=== PATIENT | male | born 1975 | race Caucasian/White ===

== ENCOUNTER 2020-09-27 07:55 | Emergency (ER) | payer OTHER, MEDICAID ==
[~2020-09-27] VITALS: Ht 170.2 cm; Wt 81.7 kg
[2020-09-27 08:24] LABS: ABSOLUTE BASOPHILS 0.1 thou/uL (0.0-0.2); ABSOLUTE EOSINOPHILS 0.1 thou/uL (0.0-0.7); ABSOLUTE MONOCYTES 0.6 thou/uL (0.0-1.2); ABSOLUTE NEUTROPHILS 4.7 thou/uL (1.6-8.1); BASOPHILS 0.9 %; HEMATOCRIT 46.3 % (42.0-52.0); HEMOGLOBIN 15.6 gm/dL (14.0-18.0); LYMPHOCYTES 35.6 %; MCH 28.4 pg (26.0-34.0); MCHC 33.7 g/dL (28.0-37.0); MONOCYTES 7.3 %; MPV 9.1 fl. (7.2-11.1); NUCLEATED RBCS 0 /100WBC; PLATELET COUNT* 180 thou/uL (150-400); POLYS 55.2 %; RBC 5.51 mil/uL (4.50-6.00); RDW-CV 13.2 % (10.5-14.5); WBC 8.5 thou/uL (4.0-11.0)
[2020-09-27] MEDS ORDERED: NORVASC 2.5 MG2.5 M1 PO (08:28)
[2020-09-27] MEDS ORDERED: LISINOPRIL10 MG PO (08:28)
[2020-09-27 08:31] LABS: CALCIUM 8.8 mg/dL (8.5-10.1); CREATININE 1.1 mg/dL (0.6-1.3)
[2020-09-27 08:32] LABS: POTASSIUM 2.8 mmol/L (3.5-5.1)
[2020-09-27 08:36] LABS: ALBUMIN 3.9 g/dL (3.4-5.0); TOTAL BILIRUBIN 1.8 mg/dL (<0.1-1.0); TOTAL PROTEIN 7.5 g/dL (6.4-8.2)
[2020-09-27 08:42] LABS: SALICYLATE < 2.8 mg/dL (2.8-20.0)
[2020-09-27 08:46] LABS: ACETAMINOPHEN < 2 ug/mL (10-30); ALCOHOL < 10 mg/dL (<10)
[2020-09-27 10:06] LABS: URINE BLOOD TRACE (Negative); URINE CLARITY CLEAR; URINE COLOR YELLOW; URINE GLUCOSE-RANDOM NEGATIVE (Negative); URINE KETONES NEGATIVE (Negative); URINE LEUKOCYTES-REFLEX NEGATIVE (Negative); URINE NITRITE-REFLEX NEGATIVE (Negative); URINE PROTEIN TRACE (Negative); URINE SPECIFIC GRAVITY 1.025 (1.005-1.030)
[2020-09-27 10:12] LABS: ICTOTEST (BILI CONFIRMATORY) Negative (Negative); URINE BILIRUBIN 1+ (Negative)
[2020-09-27 10:14] LABS: AMP/METHAMP POSITIVE (Negative); BARBITURATES Negative (Negative); BENZODIAZEPINES Negative (Negative); COCAINE Negative (Negative); METHADONE Negative (Negative); OPIATES Negative (Negative); PCP Negative (Negative); THC POSITIVE (Negative)
--- NOTE | 2020-09-27 12:55 | EKG ---
[place] [address] ELECTROCARDIOGRAM REPORT Name: JOSEPH HERMOSILLO Room: [facility]#: [id number] Admission: 09/27/20 Attend Phys: Discharge: Date of : 79 Date of Service: 09/27/20810 Report #: [id number] THIS REPORT FOR: //name// [facility] ED Test Date: 2020-09-27 Test Time: 08:11:36 Pat Name: JOSEPH HERMOSILLO Department: Room: Gender: Welt Butter Hand: : 1975 Requested By: Taqueria Fowler Order Number: [id number] MD: Dedrick Maher Measurements Intervals [place] Rate: 84 P: 40 TN: 166 QRS: 21 QRSD: 92 T: 42 QT: 381 QTc: 451 Interpretive Statements Sinus rhythm Probable left atrial enlargement No previous ECG available for comparison Electronically Signed On 09-27-2020 12:55:14 CLINICAL DATA COORDINATOR by Dedrick Maher [email or web address] <ELECTRONICALLY SIGNED> By: Dedrick Maher MD, [facility] 09/27/20 1255 0 0 Dedrick Maher MD, FACC /EPI
[2020-09-27 15:10] VITALS: BP 122/82
== END 2020-09-27 15:15 ==
LOC: M.ERS 07:55
PROVIDERS: Family Medicine
DX: R45.851 Suicidal ideations (principal); F15.10 Other stimulant abuse, uncomplicated; I10 Essential (primary) hypertension; G43.909 Migraine, unspecified, not intractable, without status migrainosus; Z79.899 Other long term (current) drug therapy; Z88.8 Allergy status to other drugs, medicaments and biological substances; Z20.828 Contact with and (suspected) exposure to other viral communicable diseases